=== PATIENT | female | born 1950 | race African-American/Black ===

== ENCOUNTER 2018-12-26 18:14 | Emergency (ER) | payer MEDICARE, OTHER ==
[2018-12-26] MEDS ORDERED: OXYCODONE-ACETAMINOPHEN 5-325 MG TABLET PO ONE (18:42)
--- NOTE | 2018-12-26 18:42 | ER Document Report ---
ED Medical Screen (RME) - General Chief Complaint: Abdominal Pain >50 Stated Complaint: ABDOMINAL PAIN Time Seen by Provider: 12/26/18 18:38 Primary Care Provider: Carla MURCIA MD [Primary Care Provider] - Follow up as needed Mode of Arrival: Ambulatory Information source: Patient Notes: 68-year-old female presents to ED for lower abdominal pain since 2 PM she denies any nausea or vomiting or any fever. She is a dialysis patient Thursday and Thursday and has been to all of her dialysis treatments. She does have a history of high blood pressure and cholesterol. She has had a total hysterectomy. She does have a graft and a stent in the left arm. I have greeted and performed a rapid initial assessment of this patient. A comprehensive ED assessment and evaluation of the patient, analysis of test results and completion of medical decision making process will be conducted by an additional ED providers. - Related Data Allergies/Adverse Reactions: No Known Allergies Allergy (Verified 12/26/18 18:38) Physical Exam - Vital signs Vitals: Temp Pulse Resp BP Pulse Ox 98.3 F 87 20 179/115 H 100 12/26/18 18:26 12/26/18 18:26 12/26/18 18:26 12/26/18 18:26 12/26/18 18:26 Course - Vital Signs Vital signs: Temp Pulse Resp BP Pulse Ox 98.3 F 87 20 179/115 H 100 12/26/18 18:26 12/26/18 18:26 12/26/18 18:26 12/26/18 18:26 12/26/18 18:26 Doctor's Discharge - Discharge Referrals: Carla MURCIA MD [Primary Care Provider] - Follow up as needed
[2018-12-26 19:37] LABS: ABSOLUTE BASOPHILS # (AUTO) 0.1 10^3/uL (0.0-0.2); ABSOLUTE EOSINOPHILS # (AUTO) 0.3 10^3/uL (0.0-0.6); ABSOLUTE LYMPHOCYTES (AUTO) 1.9 10^3/uL (0.5-4.7); ABSOLUTE MONOCYTES (AUTO) 0.7 10^3/uL (0.1-1.4); ABSOLUTE NEUT (AUTO) 4.7 10^3/uL (1.7-8.2); BASOPHILS % (AUTO) 0.8 % (0-2); HEMATOCRIT 36.3 % (36.0-47.0); LYMPHOCYTES % (AUTO) 24.5 % (13-45); MEAN CORPUSCULAR HEMOGLOBIN 30.2 pg (27.0-33.4); MEAN CORPUSCULAR HGB CONC 33.1 g/dL (32.0-36.0); MEAN CORPUSCULAR VOLUME 91 fl (80-97); MONOCYTES % (AUTO) 9.4 % (3-13); PLATELET COUNT 265 10^3/uL (150-450); RED BLOOD COUNT 3.97 10^6/uL (3.72-5.28); SEGMENTED NEUTROPHILS % (AUTO) 61.3 % (42-78); TOTAL CELLS COUNTED % (AUTO) 100 %; WHITE BLOOD COUNT 7.6 10^3/uL (4.0-10.5)
[2018-12-26 19:59] LABS: ALBUMIN 4.1 g/dL (3.5-5.0); ALKALINE PHOSPHATASE 126 U/L (38-126); ANION GAP 14 (5-19); ASPARTATE AMINO TRANSFERASE 23 U/L (14-36); BILIRUBIN,DIRECT 0.4 mg/dL (0.0-0.4); BILIRUBIN,TOTAL 0.5 mg/dL (0.2-1.3); BLOOD UREA NITROGEN 39 mg/dL (7-20); CALCIUM 9.3 mg/dL (8.4-10.2); CARBON DIOXIDE 27 mmol/L (22-30); CHLORIDE 100 mmol/L (98-107); GLUCOSE 91 mg/dL (75-110); POTASSIUM 5.1 mmol/L (3.6-5.0); TOTAL PROTEIN 7.2 g/dL (6.3-8.2)
[2018-12-26] MEDS ORDERED: MORPHINE SULFATE 10 MG/ML INJ IV ONE (21:10)
[2018-12-26] MEDS ORDERED: ONDANSETRON HCL INJ/PF 4 MG/2 ML SDV IV ONE (21:10)
--- NOTE | 2018-12-26 21:13 | ER Document Report ---
ED General - General Chief Complaint: Abdominal Pain >50 Stated Complaint: ABDOMINAL PAIN Time Seen by Provider: 12/26/18 18:38 Primary Care Provider: Carla MURCIA MD [Primary Care Provider] - Follow up as needed Mode of Arrival: Ambulatory TRAVEL OUTSIDE OF THE [place] IN LAST 30 DAYS: No - HPI Notes: 68-year-old female with abdominal pain. Patient has known history of end-stage renal disease, dialyzed on Thursday. No missed dialysis. Had rapid onset today around 2 PM of lower midline and left lower quadrant abdominal pain. Severe, waxing and waning. Nausea but no vomiting. No fever, chills or sweats. No blood in her stool. No diarrhea. Patient is an uric at baseline. No other modifying factors, no other associated symptoms, no other provocative or palliative factors. - Related Data Allergies/Adverse Reactions: No Known Allergies Allergy (Verified 12/26/18 18:38) Home Medications: allopurinol. amitriptyline. amlodipine. apixiban. atorv astatin. auryxia. calcitrol. calcium acetate. calcium carbonate. dialyvite. epoetin barbie. lactulose. omeprazole. odansetron. topiramate. venofer. ibuprofen Past Medical History - General Information source: Patient - Social History Smoking Status: Never Smoker Chew tobacco use (# tins/day): No Frequency of alcohol use: None Drug Abuse: None Family History: Reviewed & Not Pertinent Patient has suicidal ideation: No Patient has homicidal ideation: No - Medical History Notes: Includes end-stage renal disease, on dialysis. She has a history of "two partial hysterectomies" Review of Systems - Review of Systems Notes: Review of systems as in the history of present illness, otherwise negative x 10 systems. Physical Exam - Vital signs Vitals: Temp Pulse Resp BP Pulse Ox 98.3 F 87 20 179/115 H 100 12/26/18 18:26 12/26/18 18:26 12/26/18 18:26 12/26/18 18:26 12/26/18 18:26 - Notes Notes: General: Well developed . HEENT: Normocephalic, atraumatic. Pupils equal round reactive to light. No JVD. Chest: No trauma. Respiratory: Good air exchange, normal excursion. Cardiac: Regular rhythm. No murmurs or gallops. Abdomen: Soft, nondistended, non-tympanic. Moderate lower midline and left lower quadrant abdominal tenderness. Back: No asymmetry or gross abnormality. Motor: Grossly normal power and tone. Neurologic: Alert, nonfocal. Cranial nerves II-12 are intact. Sensation intact. Vascular: Well perfused. Normal peripheral pulses. Skin: No petechiae or purpura. Course - Re-evaluation Re-evalutation: 12/26/18 21:13 Female with abdominal pain unclear etiology. Patient was evaluated by the [facility] provider prior to my evaluation. Studies / interventions have been ordered by this provider and may still be pending. Labs are unremarkable. However there is concern for potential for complicated diverticulitis, vascular emergency or other etiology. We will proceed with contrasted CT imaging, IV opiate analgesics, reassess. 12/26/18 23:26 Patient has had substantial improvement in her pain, serial exam show benign abdomen. Labs reviewed, CBC, chemistries unremarkable with the exception of pre-existing renal failure. CT imaging is obtained, there are no acute abnormalities to explain her pain. However, there is commentary about lesions in her right kidney that are suspicious for malignancy. I have conveyed this information the patient and impressed upon her the critical need for close outpatient follow-up over the next several days to week. Patient is discharged home with a short course of analgesics, is seeing her field sales trainer and primary care tomorrow. - Vital Signs Vital signs: Temp Pulse Resp BP Pulse Ox 98.3 F 87 20 179/115 H 100 12/26/18 18:26 12/26/18 18:26 12/26/18 18:26 12/26/18 18:26 12/26/18 18:26 - Laboratory Result Diagrams: 12/26/18 19:15 12/26/18 19:15 Laboratory results interpreted by me: 12/26/18 12/26/18 19:15 19:15 RDW 16.0 H Potassium 5.1 H BUN 39 H Creatinine 9.62 H Est GFR ( Amer) 5 L Est GFR (MDRD) Non-Af 4 L Discharge - Discharge Clinical Impression: Abdominal pain Qualifiers: Abdominal location: unspecified location Qualified Code(s): R10.9 - Unspecified abdominal pain Condition: Stable Disposition: HOME, SELF-CARE Instructions: Abdominal Pain ([facility]) Additional Instructions: Your CT scan showed abnormal appearing lesions on your right kidney. These are concerning for cancer. You must seek follow-up with your regular doctor over the next several days to week. Prescriptions: Hydrocodone/Acetaminophen [Vicodin 5-300 mg Tablet] 1 each PO Q6 3 Days #12 tablet Referrals: Carla MURCIA MD [Primary Care Provider] - Follow up tomorrow
--- NOTE | 2018-12-26 23:17 | RADIOLOGY REPORT (SQ) ---
EXAM DESCRIPTION: CT ABDOMEN PELVIS WITH IV CONTRAST COMPLETED DATE/TME: 12/26/2018 00:00 CLINICAL HISTORY: 68 years, Female, Severe lower AP. Hx ESRD, anuric COMPARISON: None. TECHNIQUE: EXAM DESCRIPTION: CLINICAL HISTORY: Severe lower AP. Hx ESRD, anuric COMPARISON: None Available TECHNIQUE: Contiguous axial images of the abdomen and pelvis were obtained after the administration of intravenous contrast followed by reconstruction images.This exam was performed according to our departmental dose-optimization program, which includes automated exposure control, adjustment of the mA and/or kV according to patient size and/or use of iterative reconstruction technique. FINDINGS: Numerous low-attenuation lesions of the liver are nonspecific, and measure up to 1 cm diameter. Nonobstructive right renal stone measures 4 mm. The right kidney is very heterogeneous in attenuation. Neoplasm is not excluded. Exophytic lesions are not simple cysts. The left kidney is surgically absent. Calcified gallstone is present. No pericholecystic fluid. There is significant arteriosclerosis of the aorta. Heart is mildly enlarged. There is a small hiatal hernia. There are postsurgical changes of the upper abdomen. There is colonic diverticulosis. Moderate stool is in the colon. Trace fluid is in the pelvis. There is mild prominence of the pancreatic duct. Detail is limited of the pancreas. There is scarring and atelectasis at both lung bases. The appendix is not clearly seen. There is widening of multiple neural foramina of the sacrum. Significance of this is unclear. Detail of the spine is limited. There is extensive heterogeneity of bone marrow which is nonspecific. No evidence of bowel obstruction or perforation. There is extensive bony degenerative change. There is significant arthritic change with periarticular sclerosis and erosions at the right hip. IMPRESSION: Gallstone without clear evidence of cholecystitis. Possible right renal neoplasm. Follow-up is recommended. Hiatal hernia. Cardiomegaly. See additional findings above.
[2018-12-26] MEDS ORDERED: HYDROCODONE/ACETAMINOPHEN 5-325 MG TABLET PO ONE (23:31)
[2018-12-27 00:08] VITALS: BP 131/88
== END 2018-12-27 00:06 | disposition home or self-care (01) ==
LOC: ER 18:14
DX: R10.9 Unspecified abdominal pain (principal); R11.0 Nausea; N18.6 End stage renal disease; Z99.2 Dependence on renal dialysis
CPT/HCPCS: 36415; 83690; 85025; 80053; 74177; J2270; A9270 ×2; J2405; 96374; 96375; 99284

== ENCOUNTER 2019-01-10 13:15 | Inpatient (IN) | payer MEDICARE, OTHER ==
--- NOTE | 2019-01-10 13:46 | ER Document Report ---
ED General - General Stated Complaint: BLEEDING Time Seen by Provider: 01/10/19 13:27 Primary Care Provider: Carla MURCIA MD [ACTIVE STAFF] - Follow up as needed Notes: 68-year-old female with end-stage renal disease on dialysis Thursday//Thursday and history of a nephrectomy at the age of 16 presents the emergency department from dialysis via EMS for bleeding at the AV fistula site. Patient states that she was about one third of the way through treatment and the machine was malfunctioning so a reinserted the needle and a new site when she started to bleed profusely. Direct pressure was placed and bleeding is controlled. Patient denies dizziness or lightheadedness, weakness, rapid heart rate, acute shortness of breath, does complain of pressure at the site, patient is able to move all of her fingers and flex and extend at the wrist. No other complaints TRAVEL OUTSIDE OF THE [place] IN LAST 30 DAYS: No - Related Data Allergies/Adverse Reactions: No Known Allergies Allergy (Verified 12/26/18 18:38) Past Medical History - Social History Smoking Status: Former Smoker Frequency of alcohol use: None Drug Abuse: None Family History: Reviewed & Not Pertinent Patient has suicidal ideation: No Patient has homicidal ideation: No Review of Systems - Review of Systems Constitutional: See HPI EENT: No symptoms reported Cardiovascular: See HPI Respiratory: See HPI Gastrointestinal: No symptoms reported Genitourinary: No symptoms reported Female Genitourinary: No symptoms reported Musculoskeletal: No symptoms reported Skin: No symptoms reported Hematologic/Lymphatic: See HPI Neurological/Psychological: No symptoms reported Physical Exam - Vital signs Vitals: Temp Pulse Resp BP Pulse Ox 97.8 F 98 16 154/103 H 100 01/10/19 13:39 01/10/19 13:39 01/10/19 13:39 01/10/19 13:39 01/10/19 13:39 - Notes Notes: PHYSICAL EXAMINATION: Reviewed vital signs and charting by RN GENERAL: Alert, interacts well. No acute distress. HEAD: Normocephalic, atraumatic. EYES: Pupils equal and round. Extraocular movements intact. ENT: Oral mucosa moist, tongue midline. NECK: Full range of motion. Trachea midline. ABDOMEN: soft, non-tender. No distention. Bowel sounds present EXTREMITIES: Moves all 4 extremities spontaneously. Large area of edema in the antecubital area over the patient's AV fistula, bleeding is controlled. SKIN: Warm, dry, normal turgor. No rashes or lesions noted. Course - Re-evaluation Re-evalutation: 01/10/19 13:46 Inspected the areas and bleeding is controlled. I removed the clamp. I have placed a call with Dr. Peterson, surgeon occupational therapy specialist, awaiting a return phone call.. 01/10/19 14:43 Dr. Peterson came to the bedside. It is concerning because it appears that the hematoma may be unstable and has expanded since initial visualization. He spoke with Dr. Stephen Tracy and plan is to admit under the hospitalist. Adam Velazquez NP admitted patient with surgical consult. - Vital Signs Vital signs: Temp Pulse Resp BP Pulse Ox 97.8 F 98 16 154/103 H 100 01/10/19 13:39 01/10/19 13:39 01/10/19 13:39 01/10/19 13:39 01/10/19 13:39 Discharge - Discharge Clinical Impression: Hemorrhage of arteriovenous fistula Qualifiers: Encounter type: initial encounter Qualified Code(s): T82.838A - Hemorrhage due to vascular prosthetic devices, implants and grafts, initial encounter Condition: Stable Disposition: ADMITTED INPATIENT Admitting Provider: Madison (Hospitalist) Unit Admitted: Medical Floor Referrals: Carla MURCIA MD [ACTIVE STAFF] - Follow up as needed
[2019-01-10] MEDS ORDERED: ACETAMINOPHEN 325 MG TABLET PO PRN (15:08)
[2019-01-10] MEDS ORDERED: MAG HYDROX/AL HYDROX/SIMETH SUSP 30 ML UDCUP PO PRN (15:08)
[2019-01-10] MEDS ORDERED: MAGNESIUM HYDROXIDE SUSP 30 ML UDCUP PO PRN (15:08)
[2019-01-10] MEDS ORDERED: ONDANSETRON HCL INJ/PF 4 MG/2 ML SDV IV PRN (15:08)
[2019-01-10] MEDS ORDERED: OXYCODONE-ACETAMINOPHEN 5-325 MG TABLET PO PRN (15:08)
[2019-01-10] MEDS ORDERED: ZOLPIDEM TARTRATE 5 MG TABLET PO PRN (15:08)
--- NOTE | 2019-01-10 15:22 | PDOC H&P ---
History of Present Illness Admission Date/PCP: 01/10/19 14:54 Dr. Gauthier Patient complains of: Hematoma from dialysis catheterization History of Present Illness: NELSON BENJAMIN is a 68 year old female who was at dialysis and inadvertently had a dialysis catheter go to her AV fistula creating a large hematoma on her left forearm. Patient states that she is about [address] through her treatment and the machine was malfunctioning so they had to reinsert a needle and a new site when she started bleeding profusely. Direct pressure was placed and bleeding was controlled. Patient denied any dizziness or lightheadedness, weakness rapid heart rate or other symptoms. Patient does have a large hematoma on her left forearm. No treatment prior to arrival other than direct pressure no aggravating factors. Past Medical History Cardiac Medical History: Reports: Hyperlipidema, Hypertension Neurological Medical History: Reports: Migraine Renal/ Medical History: Reports: End Stage Renal Disease GI Medical History: Reports: Gastroesophageal Reflux Disease Past Surgical History Past Surgical History: Reports: Hysterectomy Social History Information Source: Patient Lives with: Family Smoking Status: Former Smoker Electronic Cigarette use?: No Frequency of Alcohol Use: None Hx Recreational Drug Use: No Drugs: None Hx Prescription Drug Abuse: No - Advance Directive Resuscitation Status: Full Code Family History Family History: CAD, Hypertension, Other - End-stage renal disease requiring hemodialysis and the mother Parental Family History Reviewed: Yes Children Family History Reviewed: Yes Sibling(s) Family History Reviewed.: Yes Medication/Allergy Home Medications: Hydrocodone/Acetaminophen [Vicodin 5-300 mg Tablet] 1 each PO Q6 3 Days #12 tablet 12/26/18 Allergies/Adverse Reactions: No Known Allergies Allergy (Verified 12/26/18 18:38) Review of Systems Constitutional: ABSENT: chills, fever(s), headache(s), weight gain, weight loss Eyes: ABSENT: visual disturbances Ears: ABSENT: hearing changes Cardiovascular: ABSENT: chest pain, dyspnea on exertion, edema, orthropnea, palpitations Respiratory: ABSENT: cough, hemoptysis Gastrointestinal: ABSENT: abdominal pain, constipation, diarrhea, hematemesis, hematochezia, nausea, vomiting Genitourinary: ABSENT: dysuria, hematuria Musculoskeletal: PRESENT: other - Large hematoma on the farm from dialysis catheterization. ABSENT: joint swelling Integumentary: ABSENT: rash, wounds Neurological: ABSENT: abnormal gait, abnormal speech, confusion, dizziness, focal weakness, syncope Psychiatric: ABSENT: anxiety, depression, homidical ideation, suicidal ideation Endocrine: ABSENT: cold intolerance, heat intolerance, polydipsia, polyuria Hematologic/Lymphatic: ABSENT: easy bleeding, easy bruising Physical Exam Vital Signs: Temp Pulse Resp BP Pulse Ox 97.8 F 98 16 154/103 H 100 01/10/19 13:39 01/10/19 13:39 01/10/19 13:39 01/10/19 13:39 01/10/19 13:39 Intake & Output 01/09/19 01/10/19 01/11/19 06:59 06:59 06:59 Weight 73 kg General appearance: PRESENT: no acute distress, well-developed, well-nourished Head exam: PRESENT: atraumatic, normocephalic Eye exam: PRESENT: conjunctiva pink, EOMI, PERRLA. ABSENT: scleral icterus Ear exam: PRESENT: normal external ear exam Mouth exam: PRESENT: moist, tongue midline Neck exam: ABSENT: carotid bruit, JVD, lymphadenopathy, thyromegaly Respiratory exam: PRESENT: clear to auscultation ludmila. ABSENT: rales, rhonchi, wheezes Cardiovascular exam: PRESENT: RRR. ABSENT: diastolic murmur, rubs, systolic murmur Pulses: PRESENT: normal dorsalis pedis pul Vascular exam: PRESENT: normal capillary refill GI/Abdominal exam: PRESENT: normal bowel sounds, soft. ABSENT: distended, guarding, mass, organolmegaly, rebound, tenderness Rectal exam: PRESENT: deferred Extremities exam: PRESENT: full ROM, other - Large hematoma left forearm from dialysis catheterization. Patient does have a AV fistula with good thrill and bruit. ABSENT: calf tenderness, clubbing, pedal edema Neurological exam: PRESENT: alert, awake, oriented to person, oriented to place, oriented to time, oriented to situation, CN II-XII grossly intact. ABSENT: motor sensory deficit Psychiatric exam: PRESENT: appropriate affect, normal mood. ABSENT: homicidal ideation, suicidal ideation Skin exam: PRESENT: dry, intact, warm. ABSENT: cyanosis, rash Assessment and Plan - Diagnosis (1) Hemorrhage of arteriovenous fistula Qualifiers: Encounter type: initial encounter Qualified Code(s): T82.838A - Hemorrhage due to vascular prosthetic devices, implants and grafts, initial encounter Is this a current diagnosis for this admission?: Yes Plan: 01/10/2019-stable at this time hemorrhage has stopped. Patient does have a large hematoma. Patient will be seen by Dr. Roge malhotra for possible evacuation of this hematoma. Patient may require surgical intervention at this time. I am obtaining laboratory database at this moment and will make change Medicare based on future findings. (2) End stage renal disease on dialysis Is this a current diagnosis for this admission?: Yes Plan: 01/10/2019-Dr. Gauthier has been consulted for further dialysis. (3) Hypertension Is this a current diagnosis for this admission?: Yes Plan: 01/10/2019-Norvasc 5 mg p.o. daily titrate to effect. (4) Pain Is this a current diagnosis for this admission?: Yes Plan: 01/10/2019-Percocet 5 mg / 325 mg 1 p.o. every 4 hours as needed for pain associated with hematoma - Time Time Spent with patient: 35 or more minutes - Inpatient Certification Based on my medical assessment, after consideration of the patient's comorbidities, presenting symptoms, or acuity I expect that the services needed warrant INPATIENT care.: Yes I certify that my determination is in accordance with my understanding of Medicare's requirements for reasonable and necessary INPATIENT services [42 CFR 412.3e].: Yes Medical Necessity: Need for Surgery
[2019-01-10] MEDS ORDERED: AMLODIPINE BESYLATE 5 MG TABLET PO SCH (15:30)
--- NOTE | 2019-01-10 15:37 | PDOC CONSULTATION ---
Consultation Consult Date: 01/10/19 Attending physician:: BRYANT BUSH Provider Consulted: JOSE A ALEXANDER Consult reason:: Bleeding from left arm fistula History of Present Illness Admission Date/PCP: 01/10/19 14:54 Patient complains of: Bleeding left arm fistula History of Present Illness: NELSON BENJAMIN is a 68 year old female Who is brought to the emergency department via ground rescue after sustaining a needle dislodgment during hemodialysis. Patient is originally from [place], recently relocated to this area. Has been on chronic hemodialysis for several years through a left arm AV [place] graft by her verbal history. She dialyzes Thursday, and three quarters of the way through dialysis this morning she developed acute onset of hematoma distal to the antecubital fossa. The procedure was aborted and patient was brought by ground ambulance to [facility]. Surgery was consulted. At bedside patient was found to have a large hematoma of the left forearm. Ice and elevation applied. Patient's AV graft was patent, and there was no evidence of clinical ischemia to the left arm. Consultation was held between Dr. Randy Gauthier, auditor medical claims, the hospitalist, and Dr. Stephen Tracy about management. Decision was made for admission and observation. Past Medical History Cardiac Medical History: Reports: Hyperlipidema, Hypertension Neurological Medical History: Reports: Migraine Renal/ Medical History: Reports: End Stage Renal Disease GI Medical History: Reports: Gastroesophageal Reflux Disease Past Surgical History Past Surgical History: Multiple AV access left upper extremity Past Surgical History: Reports: Hysterectomy Social History Lives with: Family Smoking Status: Former Smoker Electronic Cigarette use?: No Frequency of Alcohol Use: None Hx Recreational Drug Use: No Drugs: None Hx Prescription Drug Abuse: No - Advance Directive Resuscitation Status: Full Code Family History Family History: None, Reviewed & Not Pertinent, CAD, Hypertension, Other - End- stage renal disease requiring hemodialysis and the mother Parental Family History Reviewed: Yes Children Family History Reviewed: Yes Sibling(s) Family History Reviewed.: Yes Medication/Allergy Home Medications: Hydrocodone/Acetaminophen [Vicodin 5-300 mg Tablet] 1 each PO Q6 3 Days #12 tablet 12/26/18 Allergies/Adverse Reactions: No Known Allergies Allergy (Verified 12/26/18 18:38) Review of Systems Eyes: ABSENT: visual disturbances Ears: ABSENT: hearing changes Cardiovascular: ABSENT: chest pain, dyspnea on exertion, edema, orthropnea, palpitations Gastrointestinal: ABSENT: abdominal pain, constipation, diarrhea, hematemesis, hematochezia, nausea, vomiting Physical Exam Vital Signs: Temp Pulse Resp BP Pulse Ox 97.8 F 98 16 154/103 H 100 01/10/19 13:39 01/10/19 13:39 01/10/19 13:39 01/10/19 13:39 01/10/19 13:39 Intake & Output 01/09/19 01/10/19 01/11/19 06:59 06:59 06:59 Weight 73 kg General appearance: PRESENT: mild distress Head exam: PRESENT: normocephalic Eye exam: PRESENT: EOMI Mouth exam: PRESENT: dry mucosa Respiratory exam: PRESENT: clear to auscultation ludmila Cardiovascular exam: PRESENT: RRR Pulses: PRESENT: other - Unable to feel radial pulses bilaterally. Hands are warm. GI/Abdominal exam: PRESENT: soft Musculoskeletal exam: PRESENT: other - Left upper extremity examined. Multiple scars consistent with previous AV graft surgery. There is a palpable graft in the upper arm looping towards the antecubital fossa. Bruit and thrill present. Just at the antecubital fossa and distally is a 8+ centimeter semi spherical swelling consistent with hematoma. There is no bruit within the hematoma. There is some bruising of the underlying skin. Neurological exam: PRESENT: awake, oriented to person, oriented to place, oriented to time, oriented to situation Assessment & Plan - Diagnosis (1) Hemorrhage of arteriovenous fistula Qualifiers: Encounter type: initial encounter Qualified Code(s): T82.838A - Hemorrhage due to vascular prosthetic devices, implants and grafts, initial encounter Is this a current diagnosis for this admission?: Yes Plan: Impression: Acute bleed during dialysis at AV graft site, now clinically stabilized. Increased pain. Graft remains patent. No evidence clinically of compromise to hand circulation. Recommendations: 1. Patient will be admitted kept n.p.o. and on IV fluids 2. Dr. Stephen Tracy, general surgeon, will await patient and make any further recommendations. 3. At this moment, the patient does not need arm exploration, and control of hemorrhage as the hematoma appears stabilized. (2) End stage renal disease on dialysis Is this a current diagnosis for this admission?: Yes (3) Hypertension Is this a current diagnosis for this admission?: Yes - Time Time Spent: 30 to 50 Minutes Smoking Cessation Education: 3 to 10 minutes Medications reviewed and adjusted accordingly: Yes Anticipated discharge: Home - Inpatient Certification Based on my medical assessment, after consideration of the patient's comorbidities, presenting symptoms, or acuity I expect that the services needed warrant INPATIENT care.: Yes I certify that my determination is in accordance with my understanding of Medicare's requirements for reasonable and necessary INPATIENT services [42 CFR 412.3e].: Yes Medical Necessity: Need For IV Fluids, Need for Pain Control, Need for IV Antibiotics, Need for Surgery
[2019-01-10 15:58] LABS: ABSOLUTE BASOPHILS # (AUTO) 0.1 10^3/uL (0.0-0.2); ABSOLUTE EOSINOPHILS # (AUTO) 0.2 10^3/uL (0.0-0.6); ABSOLUTE LYMPHOCYTES (AUTO) 1.3 10^3/uL (0.5-4.7); ABSOLUTE MONOCYTES (AUTO) 0.5 10^3/uL (0.1-1.4); ABSOLUTE NEUT (AUTO) 4.4 10^3/uL (1.7-8.2); BASOPHILS % (AUTO) 0.8 % (0-2); EOSINOPHILS % (AUTO) 3.3 % (0-6); HEMATOCRIT 28.7 % (36.0-47.0); HEMOGLOBIN 9.8 g/dL (12.0-15.5); LYMPHOCYTES % (AUTO) 20.5 % (13-45); MEAN CORPUSCULAR HEMOGLOBIN 30.7 pg (27.0-33.4); MEAN CORPUSCULAR HGB CONC 34.1 g/dL (32.0-36.0); MEAN CORPUSCULAR VOLUME 90 fl (80-97); MONOCYTES % (AUTO) 7.7 % (3-13); PLATELET COUNT 279 10^3/uL (150-450); RED BLOOD COUNT 3.18 10^6/uL (3.72-5.28); RED CELL DISTRIBUTION WIDTH 16.4 % (11.5-14.0); SEGMENTED NEUTROPHILS % (AUTO) 67.7 % (42-78); TOTAL CELLS COUNTED % (AUTO) 100 %; WHITE BLOOD COUNT 6.4 10^3/uL (4.0-10.5)
[2019-01-10 16:04] LABS: INTERNATIONAL RATION (INR) 1.08; PARTIAL THROMBOPLASTIN TIME 32.4 SEC (23.5-35.8)
[2019-01-10 16:05] LABS: ALBUMIN 3.5 g/dL (3.5-5.0); ALKALINE PHOSPHATASE 89 U/L (38-126); ANION GAP 13 (5-19); ASPARTATE AMINO TRANSFERASE 17 U/L (14-36); BILIRUBIN,DIRECT 0.3 mg/dL (0.0-0.4); BILIRUBIN,TOTAL 0.3 mg/dL (0.2-1.3); BLOOD UREA NITROGEN 51 mg/dL (7-20); CALCIUM 7.7 mg/dL (8.4-10.2); CARBON DIOXIDE 28 mmol/L (22-30); CHLORIDE 103 mmol/L (98-107); GLUCOSE 85 mg/dL (75-110); POTASSIUM 5.4 mmol/L (3.6-5.0); TOTAL PROTEIN 6.3 g/dL (6.3-8.2)
[2019-01-10] MEDS ORDERED: MORPHINE SULFATE 10 MG/ML INJ IV ONE (16:36)
--- NOTE | 2019-01-10 16:47 | PDOC CONSULTATION ---
Consultation Consult Date: 01/10/19 Provider Consulted: RYAN MCCARTY History of Present Illness Admission Date/PCP: 01/10/19 14:54 Patient complains of: Painful swelling and bleeding from the left arm. History of Present Illness: NELSON BENJAMIN is a 68 year old female The patient had hemodialysis to the, difficulty with manipulating the needles was encountered. A large hematoma arose circulate with bleeding prompting transfer to the emergency room. Approximately 1 hour of hemodialysis was obtained before this event. The patient had some pressure sensations in the hand, she no longer has it. Past Medical History Cardiac Medical History: Reports: Hyperlipidema, Hypertension Neurological Medical History: Reports: Migraine Renal/ Medical History: Reports: End Stage Renal Disease GI Medical History: Reports: Gastroesophageal Reflux Disease Past Surgical History Past Surgical History: Reports: Hysterectomy Social History Lives with: Family Smoking Status: Former Smoker Electronic Cigarette use?: No Frequency of Alcohol Use: None Hx Recreational Drug Use: No Drugs: None Hx Prescription Drug Abuse: No - Advance Directive Resuscitation Status: Full Code Family History Family History: None, Reviewed & Not Pertinent, CAD, Hypertension, Other - End- stage renal disease requiring hemodialysis and the mother Parental Family History Reviewed: No Children Family History Reviewed: No Sibling(s) Family History Reviewed.: No Medication/Allergy Allergies/Adverse Reactions: No Known Allergies Allergy (Verified 12/26/18 18:38) Physical Exam Vital Signs: Temp Pulse Resp BP Pulse Ox 97.8 F 98 16 154/103 H 100 01/10/19 13:39 01/10/19 13:39 01/10/19 13:39 01/10/19 13:39 01/10/19 13:39 Intake & Output 01/09/19 01/10/19 01/11/19 06:59 06:59 06:59 Weight 73 kg Additional comments: Constitutional: Well-developed well-nourished -[place] lady. No apparent acute distress. Eyes: Mucous membranes pink and moist, pupils equal and reactive to light. Conjunctiva normal. Cornea normal. ENT: Hearing grossly normal. External pinna normal to inspection. Teeth intact. Tongue normal to inspection. Cardiac: Heart sounds 1 and 2 normal, no murmurs. Respiratory: breath sounds are present bilaterally, normal. Normal respiratory effort. Psychiatric: Judgment, memory, insight seem normal. Mood is pleasant and appropriate. Extremely articulate. Extremities: Upper extremities show normal range of movement on the right, on the left restricted by findings. Pulses present noted to the radial arteries, on the right, the left not so much. Capillary refill normal. No cyanosis noted. No muscle wasting noted. Normal range of movement in both hands. A approximately 6 cm diameter mass, nonpulsatile with overlying bruising noted just about at the left antecubital fossa. In relation to an arteriovenous graft which has a nice thrill and bruit. Brief ultrasound evaluation showed the graft to be patent the anatomy at the elbow difficult to elucidate because of hematoma. Neurovascular: No apparent tremors, gait normal. Sensation grossly intact. Hearing grossly normal. Vison grossly intact. Results Laboratory Results: 01/10/19 15:26 01/10/19 15:26 01/10/19 01/10/19 15: 15:26 WBC 6.4 RBC 3.18 L Hgb 9.8 L Hct 28.7 L MCV 90 MCH 30.7 MCHC 34.1 RDW 16.4 H Plt Count 279 Seg Neutrophils % 67.7 Sodium 143.9 Potassium 5.4 H Chloride 103 Carbon Dioxide 28 Anion Gap 13 BUN 51 H Creatinine 11.95 H Est GFR ( Amer) 4 L Glucose 85 Calcium 7.7 L Total Bilirubin 0.3 AST 17 Alkaline Phosphatase 89 Total Protein 6.3 Albumin 3.5 Assessment & Plan - Diagnosis (1) End stage renal disease on dialysis Is this a current diagnosis for this admission?: Yes (2) Hemorrhage of arteriovenous fistula Qualifiers: Encounter type: initial encounter Qualified Code(s): T82.838A - Hemorrhage due to vascular prosthetic devices, implants and grafts, initial encounter Is this a current diagnosis for this admission?: Yes (3) Hypertension Is this a current diagnosis for this admission?: Yes - Plan Summary Plan Summary: Based on history and examination the patient has suffered significant hemorrhage and hematoma from a left arm AV graft, possible [place] vessel. It is impossible to ascertain the location of the bleeding it could be graft, could be anastomosis could be the brachial artery. The hematoma is large enough to compromise overlying skin time. The case was discussed with Dr. Jos Miguel in [place] and we agreed to transfer the patient to [facility] for the purposes of further stabilization, possibly angiogram and intervention as indicated. The recommendations, risks benefits and alternatives were discussed with the patient she is agreeable. We look forward to seeing this patient in the future once resolved.
[2019-01-10] MEDS ORDERED: SODIUM POLYSTYRENE SULFONATE 15 GM/60 ML PO ONE (18:00)
[2019-01-10] MEDS ORDERED: CALCIUM GLUCONATE 1000 MG/10 ML INJ IV ONE (18:00)
[2019-01-10 20:18] VITALS: BP 161/95
== END 2019-01-10 20:19 | disposition short-term general hospital (02) | DRG 314 ==
LOC: ER 13:15 → EH 14:54
PROVIDERS: ADMIT Hospitalist; ATTEND Hospitalist
DX: T82.838A Hemorrhage due to vascular prosthetic devices, implants and grafts, initial encounter (principal); N18.6 End stage renal disease; I12.0 Hypertensive chronic kidney disease with stage 5 chronic kidney disease or end stage renal disease; E78.5 Hyperlipidemia, unspecified; K21.9 Gastro-esophageal reflux disease without esophagitis; G43.909 Migraine, unspecified, not intractable, without status migrainosus; Z99.2 Dependence on renal dialysis; Z87.891 Personal history of nicotine dependence; Z82.49 Family history of ischemic heart disease and other diseases of the circulatory system; Z84.1 Family history of disorders of kidney and ureter
CPT/HCPCS: 36415; 80053; 85025; 85610; 85730; 99285; J2270; J2405

== ENCOUNTER → 2019-03-17 | Outpatient (CLI) | payer MEDICARE, OTHER | LOC: WI 12:04 | PROVIDERS: ATTEND Surgery | DX: R92.8 Other abnormal and inconclusive findings on diagnostic imaging of breast (principal) | CPT/HCPCS: 77066; G0279; 77062 ==